=== PATIENT | female | born 1960 | race Hispanic/Latino ===

== ENCOUNTER 2017-10-20 15:00 | Emergency (ER) | payer OTHER ==
[~2017-10-20] VITALS: Ht 162.6 cm; Wt 74.8 kg
[~2017-10-20 15:00] MED LIST: ACTIVELLA 1 MG1 EACH PO; BAYER CHEWABLE81 MG PO; LEVEMIR100 UNIT/1; LISINOPRIL10 MG PO; LOVASTATIN20 MG PO; METFORMIN HCL1000 M1 PO; MIRENA1 EACH IY; NOVOLIN R100 UNIT/1; ZETIA10 MG PO
[2017-10-20] MEDS ORDERED: LEVEMIR FL100 UNIT/2 SQ (15:20)
[2017-10-20] MEDS ORDERED: ESTRACE1 MG PO (15:20)
[2017-10-20] MEDS ORDERED: METFORMIN HCL1000 MG PO (15:21)
[2017-10-20] MEDS ORDERED: LEVOTHYROXINE25 MCG PO (15:21)
[2017-10-20] MEDS ORDERED: [UNRECOGNIZED DRUG - CODE] (15:22)
[2017-10-20] MEDS ORDERED: NOVOLOG FL100 UNIT/1 SUB-Q (15:22)
[2017-10-20] MEDS ORDERED: ONDANSETRON ODT8 MG PO (17:20)
[2017-10-20] MEDS ORDERED: PROTONIX40 MG PO (17:20)
== END 2017-10-20 17:36 | disposition home or self-care (01) ==
LOC: ED 15:00
DX: K29.70 Gastritis, unspecified, without bleeding (principal); E11.9 Type 2 diabetes mellitus without complications; E78.00 Pure hypercholesterolemia, unspecified; Z88.8 Allergy status to other drugs, medicaments and biological substances; Z79.899 Other long term (current) drug therapy; Z79.4 Long term (current) use of insulin
CPT/HCPCS: 74177; 80053; 81001; 82150; 83690; 85025; 96374; 96375; 99284; J1170; J2405; J7030; Q9967